=== PATIENT | male | born 1940 | race Caucasian/White ===

== ENCOUNTER → 2019-10-03 | Outpatient (CLI) | payer MEDICARE, OTHER, SELFPAY | PROVIDERS: Family Provider Family Medicine; Visit Provider Family Medicine | DX: C34.90 Malignant neoplasm of unspecified part of unspecified bronchus or lung (principal); J43.9 Emphysema, unspecified; R91.8 Other nonspecific abnormal finding of lung field; R06.00 Dyspnea, unspecified; Z98.890 Other specified postprocedural states; Z79.899 Other long term (current) drug therapy ==

== ENCOUNTER 2020-02-17 12:15 | Inpatient (IN) | payer MEDICARE, OTHER, SELFPAY ==
[2020-02-17] VITALS (7 sets, daily range): BP systolic 104–163; BP diastolic 48–102; PULSE 82–114; RESP 20–35; TEMP 36.8; O2SAT 89–97; BMI 22.0
--- NOTE | 2020-02-17 13:02 | XRR_ITS ---
PROCEDURE INFORMATION: Exam: XR Chest, 1 View Exam date and time: 02/17/2020 1:19 PM Age: 79 years old Clinical indication: Shortness of breath; Prior surgery; Surgery date: 6+ months; Surgery type: Lung-date of surgery not provided; Patient HX: History of lung cancer; Additional info: Dyspnea TECHNIQUE: Imaging protocol: XR of the chest Views: 1 view. COMPARISON: CR XR chest 2V* [id number] 02/13/2020 9:24 AM FINDINGS: Lungs: There is an underlying pattern of emphysema. Postsurgical changes are present in the right hemithorax. There is increased airspace disease in the left lower lobe with air bronchogram formation. Pleural space: No pleural effusion. No pneumothorax. Heart/Mediastinum: The cardiac silhouette is not enlarged. The mediastinal contours are normal. Calcified mediastinal lymph nodes present likely from prior granulomatous disease. Bones/joints: Postsurgical changes in the right ribs. XR/XR chest 1V portable [id number] IMPRESSION: Left lower lobe airspace disease suggesting pneumonia.
--- NOTE | 2020-02-17 13:02 | ECG_ITS ---
Measurements Intervals [place] Rate: 93 P: 103 [place]: 173 QRS: 87 QRSD: 101 T: 69 QT: 343 QTc: 429 SINUS RHYTHM WITH OCCASIONAL SUPRAVENTRICULAR PREMATURE COMPLEXES INCOMPLETE RIGHT BUNDLE BRANCH BLOCK [90+ ms QRS DURATION, TERMINAL R IN V1/V2, 40+ ms S IN I/aVL/V4/V5/V6] Compared to ECG 11/19/2018 08:15:29 Ventricular premature complex(es) no longer present ST (T wave) deviation no longer present Electronically Signed On 02-18-2020 16:21:46 CDT by Lesley Ayers M.D. [email or web address]
--- NOTE | 2020-02-17 13:04 | W.ED.SOB ---
HPI - SOB/Dyspnea General: Chief Complaint: Shortness of Breath/Dyspnea Stated Complaint: sent by dr pérez Time Seen by Provider: 02/17/20 12:50 History of Present Illness: HPI Narrative: Patient is a 79 year old male presenting with increasing shortness of breath over about the last 10 days. He has a history of lung cancer and has had resection and radiation. He was recently found to have pseudomonas in his sputum and has been on about 5 days of levaquin. Additionally he has new onset a. fib. MD elicited complaint: shortness of breath, pain with inspiration and chest pain Pertinent past history: COPD, pneumonia and other (lung cancer) Onset (ago): day(s) (10) Context: recent illness Severity: moderate Exacerbating factors: exertion Relieving factors: oxygen and rest Known history of: COPD and other (lung cancer) Associated symptoms: Deny chest pain, cough, fever(s), hemoptysis, nausea or vomiting Review of Systems General: Reports: 10 or more systems reviewed and unremarkable except in HPI and below Const: Reports: fatigue and malaise; Denies: fever(s) or chills Card: Reports: irregular heart rhythm; Denies: chest pain Resp: Reports: dyspnea; Denies: productive cough, non-productive cough, pain on inspiration or hemoptysis GI: Reports: constipation; Denies: nausea or vomiting : Reports: dysuria Neuro: Reports: difficulty walking (due to shortness of breath); Denies: headache(s), numbness in extremities or weakness in extremities PFSH ED PFSH: Social History Smoking and tobacco status: former smoker Physical Exam Const: COMMON NORMALS: patient oriented x3 and alert GENERAL APPEARANCE: frail appearing NUTRITIONAL APPEARANCE: thin HENMT: COMMON NORMALS: normocephalic and atraumatic HEAD & SCALP: normocephalic and atraumatic Neck/C-Spine: COMMON NORMALS: full ROM and supple Chest: COMMONS NORMALS: normal inspection of the chest Resp: EFFORT & INSPECTION: Yes able to speak in complete sentences AUSCULTATION: rhonchi right upper and breath sounds absent on th left Cardio: COMMON NORMALS: Peripheral pulses 2+ throughout; negative for No murmurs present (Cardio) RATE: tachycardic RHYTHM: abnormal rhythm irregularly irregular PERIPHERAL PULSES: Peripheral pulses 2+ throughout GI: COMMON NORMALS: Normal to inspection, nondistended, normoactive bowel sounds present, Soft to palpation and non-tender PALPATION: Yes Soft to palpation Neuro: COMMON NORMALS: patient oriented x3 SENSORIUM/ORIENTATION: Yes alert Psych: COMMON NORMALS: mental status grossly normal, Normal thought process present, cooperative, normal affect, speech normal and activity/motor behavior normal SPEECH: Yes normal speech THOUGHT PROCESS: Normal thought process present Skin: COMMON NORMALS: no rashes or lesions noted GENERAL SKIN EXAM: no rashes or lesions noted Course ED course: Patient comfortable at rest and on 5 liters of oxygen. Very diminished breath sounds in the left lung. CXR shows increased infiltrate in the left lower lung. WBC normal. Chemistry normal. Discussed with Dr. Doe - he will admit and also requested that we get a CTA to look for PE. EKG showed sinus rhythm - although it was done later in the ED stay and initially on the monitor that patient was convincingly in a fib. HR around 100 throughout the stay. Vital Signs: Vital signs: Vital Signs Temperature 98.3 F 02/17/20 12:22 Pulse Rate 89 02/17/20 12:22 Respiratory Rate 28 H 02/17/20 12:22 Blood Pressure 163/102 02/17/20 12:22 Pulse Oximetry 91 02/17/20 12:22 MDM - SOB/Dyspnea MDM Narrative: Medical decision making narrative: History of lung CA - recent diagnosis of psuedomonas pneumonia. increasing oxygen requirement and decreased tolerance to minimal activity. May be related to any of those diagnoses as well as PE, radiation lung injury or anemia. Work up started in the ED and will be continued in the hospital. Lab Data: Labs: Lab Results 02/17/20 02/17/20 02/17/20 Range/Units 13:05 13:05 13:05 WBC 4.8 (4.0-10.0) 10^3/ uL RBC 3.64 L (4.1-5.3) 10^6/u L Hgb 11.7 (11.7-16.6) g/dL Hct 38.4 L (42.0-52.0) % MCV 105.5 H (80-94) fL MCH 32.1 (28.0-34.0) pg MCHC 30.5 (30.0-36.0) g/dL RDW 13.3 (12.1-15.1) % Plt Count 245 (130-400) 10^3/c mm MPV 9.7 (7.4-10.4) fL Neut % (Auto) 75.0 % Lymph % (Auto) 7.0 % [place] % (Auto) 14.1 % Eos % (Auto) 2.1 % Baso % (Auto) 0.6 % Neut # (Auto) 3.6 (1.8-7.7) 10^3/u L Lymph # (Auto) 0.3 L (0.8-4.8) 10^3/u L [place] # (Auto) 0.7 (0.2-0.9) 10^3/u L Eos # (Auto) 0.1 (0.0-0.8) 10^3/u L Baso # (Auto) 0.0 (0.0-0.1) 10^3/u L Nucleated RBC % (a uto) 0 % Nucleated RBCs # 0.0 /100WBC PT (10.5-13.3) SECO NDS INR (0.8-1.2) Sodium 139 (136-145) mmol/L Potassium 4.5 (3.5-5.1) mmol/L Chloride 100 (98-107) mmol/L Carbon Dioxide 29 (22-29) mmol/L Anion Gap 14.5 (5-19) BUN 19 (8-23) mg/dL Creatinine 0.9 (0.7-1.2) mg/dL Glucose 134 H (65-115) mg/dL Calculated Osmolal ity 286 (285-295) mOsm/k g Lactate 1.8 (0.5-2.2) mmol/L Calcium 10.0 (8.5-10.5) mg/dL Phosphorus (2.5-4.5) mg/dL Magnesium (1.7-2.3) mg/dL Total Bilirubin 0.3 (0.15-1.2) mg/dL AST 28 (0-40) U/L ALT 35 (0-41) U/L Alkaline Phosphata se 76 (40-130) IU/L Troponin T Baselin e (0-15) ng/mL NT-Pro-B Natriuret Pep (0-450) pg/mL Total Protein 7.2 (6.6-8.7) g/dL Albumin 2.9 L (3.5-5.2) g/dL Globulin 4.3 (1.3-4.6) g/dL Procalcitonin (0-0.5) ng/mL TSH (0.27-4.20) uIU/ mL 02/17/20 02/17/20 02/17/20 Range/Units 13:05 13:05 13:05 WBC (4.0-10.0) 10^3/ uL RBC (4.1-5.3) 10^6/u L Hgb (11.7-16.6) g/dL Hct (42.0-52.0) % MCV (80-94) fL MCH (28.0-34.0) pg MCHC (30.0-36.0) g/dL RDW (12.1-15.1) % Plt Count (130-400) 10^3/c mm MPV (7.4-10.4) fL Neut % (Auto) % Lymph % (Auto) % [place] % (Auto) % Eos % (Auto) % Baso % (Auto) % Neut # (Auto) (1.8-7.7) 10^3/u L Lymph # (Auto) (0.8-4.8) 10^3/u L [place] # (Auto) (0.2-0.9) 10^3/u L Eos # (Auto) (0.0-0.8) 10^3/u L Baso # (Auto) (0.0-0.1) 10^3/u L Nucleated RBC % (a uto) % Nucleated RBCs # /100WBC PT 13.90 H (10.5-13.3) SECO NDS INR 1.04 (0.8-1.2) Sodium (136-145) mmol/L Potassium (3.5-5.1) mmol/L Chloride (98-107) mmol/L Carbon Dioxide (22-29) mmol/L Anion Gap (5-19) BUN (8-23) mg/dL Creatinine (0.7-1.2) mg/dL Glucose (65-115) mg/dL Calculated Osmolal ity (285-295) mOsm/k g Lactate (0.5-2.2) mmol/L Calcium (8.5-10.5) mg/dL Phosphorus 3.0 (2.5-4.5) mg/dL Magnesium 2.4 H (1.7-2.3) mg/dL Total Bilirubin (0.15-1.2) mg/dL AST (0-40) U/L ALT (0-41) U/L Alkaline Phosphata se (40-130) IU/L Troponin T Baselin e (0-15) ng/mL NT-Pro-B Natriuret Pep 497 H (0-450) pg/mL Total Protein (6.6-8.7) g/dL Albumin (3.5-5.2) g/dL Globulin (1.3-4.6) g/dL Procalcitonin 0.09 (0-0.5) ng/mL TSH 0.87 (0.27-4.20) uIU/ mL 05/15/20 Range/Units 13:05 WBC (4.0-10.0) 10^3/ uL RBC (4.1-5.3) 10^6/u L Hgb (11.7-16.6) g/dL Hct (42.0-52.0) % MCV (80-94) fL MCH (28.0-34.0) pg MCHC (30.0-36.0) g/dL RDW (12.1-15.1) % Plt Count (130-400) 10^3/c mm MPV (7.4-10.4) fL Neut % (Auto) % Lymph % (Auto) % [place] % (Auto) % Eos % (Auto) % Baso % (Auto) % Neut # (Auto) (1.8-7.7) 10^3/u L Lymph # (Auto) (0.8-4.8) 10^3/u L [place] # (Auto) (0.2-0.9) 10^3/u L Eos # (Auto) (0.0-0.8) 10^3/u L Baso # (Auto) (0.0-0.1) 10^3/u L Nucleated RBC % (a uto) % Nucleated RBCs # /100WBC PT (10.5-13.3) SECO NDS INR (0.8-1.2) Sodium (136-145) mmol/L Potassium (3.5-5.1) mmol/L Chloride (98-107) mmol/L Carbon Dioxide (22-29) mmol/L Anion Gap (5-19) BUN (8-23) mg/dL Creatinine (0.7-1.2) mg/dL Glucose (65-115) mg/dL Calculated Osmolal ity (285-295) mOsm/k g Lactate (0.5-2.2) mmol/L Calcium (8.5-10.5) mg/dL Phosphorus (2.5-4.5) mg/dL Magnesium (1.7-2.3) mg/dL Total Bilirubin (0.15-1.2) mg/dL AST (0-40) U/L ALT (0-41) U/L Alkaline Phosphata se (40-130) IU/L Troponin T Baselin e 22 H (0-15) ng/mL NT-Pro-B Natriuret Pep (0-450) pg/mL Total Protein (6.6-8.7) g/dL Albumin (3.5-5.2) g/dL Globulin (1.3-4.6) g/dL Procalcitonin (0-0.5) ng/mL TSH (0.27-4.20) uIU/ mL EKG Data^: EKG 1: EKG Interpretation Date: 02/17/20 EKG interpretation time: 14:07 Interpretation: sinus with SVPCs - rate 93, axis normal, QRS 101 Discharge Plan Discharge Patient Disposition: Admitted As Inpatient Admit Provider: Ben Doe Clinical Impression: Acute dyspnea Pneumonia Qualifiers: Pneumonia type: due to Pseudomonas Laterality: left Lung location: lower lobe of lung Qualified Code(s): J15.1 - Pneumonia due to Pseudomonas Condition: Stable Coding Level of Care Code ED Medication Nurse for g Fwd Exam Comprehensive
[2020-02-17 13:15] LABS: Basophils % 0.6 %; Eosinophils # 0.1 10^3/uL (0.0-0.8); Eosinophils % 2.1 %; Hematocrit 38.4 % (42.0-52.0); Hemoglobin 11.7 g/dL (11.7-16.6); Lymphocytes # 0.3 10^3/uL (0.8-4.8); Mean Corpuscular HGB Conc 30.5 g/dL (30.0-36.0); Mean Corpuscular Hemoglobin 32.1 pg (28.0-34.0); Mean Corpuscular Volume 105.5 fL (80-94); Mean Platelet Volume 9.7 fL (7.4-10.4); Monocytes # 0.7 10^3/uL (0.2-0.9); Monocytes % 14.1 %; Neutrophils # 3.6 10^3/uL (1.8-7.7); Nucleated Red Blood Cells % 0 %; Platelet Count 245 10^3/cmm (130-400); Red Blood Count 3.64 10^6/uL (4.1-5.3); Red Cell Distribution Width 13.3 % (12.1-15.1); White Blood Count 4.8 10^3/uL (4.0-10.0)
[2020-02-17 13:38] LABS: Alanine Aminotransferase 35 U/L (0-41); Albumin Level 2.9 g/dL (3.5-5.2); Alkaline Phosphatase 76 IU/L (40-130); Anion Gap 14.5 (5-19); Aspartate Amino Transferase 28 U/L (0-40); Blood Urea Nitrogen 19 mg/dL (8-23); Carbon Dioxide 29 mmol/L (22-29); Chloride 100 mmol/L (98-107); Globulin 4.3 g/dL (1.3-4.6); Glucose 134 mg/dL (65-115); Osmolality Calculated 286 mOsm/kg (285-295); Potassium 4.5 mmol/L (3.5-5.1); Sodium 139 mmol/L (136-145); Total Bilirubin 0.3 mg/dL (0.15-1.2); Total Protein 7.2 g/dL (6.6-8.7)
[2020-02-17 13:39] LABS: Lactate (Lactic Acid level) 1.8 mmol/L (0.5-2.2)
--- NOTE | 2020-02-17 13:46 | USCV_ITS ---
Rudi Pitts Age: 79 Gender: M : 1940 Exam Date: 02/17/2020 15:56 Ordering Phys: Ben Doe MD Technologist: Kathia Morataya Exam Location: [facility] [place] Indication: SOB BP: / HR: 110 Rhythm: Sinus Technical Quality: Very technically difficult study MEASUREMENTS (Male / Female) Normal Values 2D ECHO LV Diastolic Diameter PLAX 4.7 cm 4.2 - 5.9 / 3.9 - 5.3 cm LV Systolic Diameter PLAX 2.6 cm LV Chamber Size 4.0 cm IVS Diastolic Thickness 1.3 cm 0.6 - 1.0 / 0.6 - 0.9 cm IVS Systolic Thickness 2.2 cm LVPW Diastolic Thickness 1.1 cm 0.6 - 1.0 / 0.6 - 0.9 cm LVPW Systolic Thickness 1.7 cm RV Chamber Size 2.8 cm LVOT Diameter 2.1 cm LV Ejection Fraction 2D Teich 74.9 % LA Diameter 3.1 cm LA Width 2.7 cm LA Height 3.5 cm RA Width 4.0 cm RA Height 3.7 cm M-MODE LV Diastolic Diameter MM 5.1 cm 4.2 - 5.9 / 3.9 - 5.3 cm LV Systolic Diameter MM 3.3 cm LV Ejection Fraction MM Teich 66.3 % IVS Diastolic Thickness MM 1.4 cm 0.6 - 1.0 / 0.6 - 0.9 cm IVS Systolic Thickness MM 1.3 cm LVPW Diastolic Thickness MM 1.4 cm 0.6 - 1.0 / 0.6 - 0.9 cm LVPW Systolic Thickness MM 1.6 cm RV Diastolic Diameter MM 1.1 cm Aortic Annulus Diameter 2.9 cm LA Ao Ratio MM 1.1 MV E Point Septal Separation 0.3 cm DOPPLER AV Peak Velocity 356.0 cm/s LVOT Peak Velocity 114.0 cm/s AV Area Cont Eq vti 0.9 cm squared AV Area Cont Eq pk 1.1 cm squared MV Area PHT 5.8 cm squared Mitral E to A Ratio 1.0 MV E' Velocity 8.0 cm/s Mitral E to MV E' Ratio 4.3 Mitral E to LV E' Lateral Ratio 6.1 Mitral E to LV E' Septal Ratio 3.4 TR Peak Velocity 350.9 cm/s TR Peak Gradient 49.3 mmHg TR Mean Velocity 269.1 cm/s TR Mean Gradient 30.5 mmHg TR Velocity Time Integral 71.8 cm TV Peak E Velocity 64.0 cm/s Right Atrial Pressure 15.0 mmHg Pulmonary Artery Systolic Pressu 64.3 mmHg PV Peak Velocity 73.0 cm/s RV Acceleration Time 0.1 s RV Ejection Time 0.3 s RV AcT/ET 0.4 FINDINGS Left Ventricle Normal left ventricular size and systolic function. Left ventricular ejection fraction is estimated at 55 %. Although no diagnostic regional wall abnormality could be identified, this possibility cannot be completely excluded based on the study. Right Ventricle Normal right ventricular size and systolic function. Right ventricular systolic pressure 64.3 mmHg. Right Atrium Normal right atrial size. Left Atrium Left atrium not well visualized. Mitral Valve Structurally normal mitral valve. Aortic Valve Thickened and calcified aortic valve. Flow acceleration noted through left ventricular outflow tract. At least moderate aortic valve stenosis, peak velocity 3.6 m/s, peak gradient 51 mmHg mean gradient 28.6 mmHg, FOREST 0.92 cm squared by continuity equation. This could be underestimated given off axis views. Tricuspid Valve Tricuspid valve not well visualized. Pulmonic Valve Pulmonic valve not well visualized. Pericardium No pericardial effusion. Prominent epicardial fat. Aorta Aorta not well visualized. CONCLUSIONS 1. This is a technically very difficult study. No apical windows and poor parasternal windows. 2. Normal left ventricular size and systolic function. Left ventricular ejection fraction is estimated at 55 %. Although no diagnostic regional wall abnormality could be identified, this possibility cannot be completely excluded based on the study. 3. Normal right ventricular size and systolic function. 4. At least moderate aortic valve stenosis, peak velocity 3.6 m/s, peak gradient 51 mmHg mean gradient 28.6 mmHg, FOREST 0.92 cm squared by continuity equation. This could be underestimated given off axis views. 5. RAHUL is recommended for better assessment of aortic valve. 6. No prior similar studies to compare. Lesley Ayers MD (Electronically Signed) Final Date: 18 Feb 2020 15:02 S
--- NOTE | 2020-02-17 13:46 | CT_ITS ---
WS: [id number] CT CHEST ANGIOGRAPHY WITH REFORMATS HISTORY: cancer, new onset afib, SOB TECHNIQUE: Contiguous axial images are obtained through the chest during arterial injection of intrav enous contrast. Images are reconstructed to evaluate the pulmonary arteries. MIP imaging also reviewe d. All CT scans at [facility] use at least one of these dose optimization techniques: aut omated exposure control; mA and/or kV adjustment per patient size (includes targeted exams where dose is matched to clinical indication); or iterative reconstruction. CONTRAST: Omnipaque 350; 95 mL IV. DLP: 1172.76 mGy.cm COMPARISON: 05/30/2019 Excellent opacification of the pulmonary arteries. Normal size pulmonary artery. No filling defects o r pulmonary embolism. Extensive atherosclerosis of aorta. No aneurysm. Mildly enlarged cardiac chambe rs. No filling defect in the LEFT atrial appendage. No pericardial or pleural effusions. Severe emphysema. History of prior RIGHT upper and middle lobectomies. Previously described pleural t hickening and nodularity along the lateral LEFT upper lung measures 2.3 x 1.0 cm and has slightly inc reased in size. Previously described RIGHT lung nodule seen on 05/30/2019 is no longer apparent. Tree- in-bud airspace disease at the LEFT lung base with mild progression. Atelectasis at the LEFT lung bas e. Mediastinal and hilar lymphadenopathy is indeterminate. Lymph node measures 11 mm in the LEFT paratra cheal region. LEFT hilar lymph node measures 12 mm. No adrenal mass. Visualized liver contains a few scattered very small hypodense nodules which are pre sent on the prior study. No increase in size or new hepatic nodules to suggest metastatic disease. No osteoblastic or osteolytic bone disease. CT/CT angio chest PE protcl [id number] IMPRESSION: 1. No pulmonary embolism. 2. Prior RIGHT upper and middle lobectomies. 3. Severe chronic emphysema. 4. Slight increased size of the pleural-based nodule in the LEFT upper thorax since 05/30/2019. 5. Previously described RIGHT lung nodule is no longer present. 6. Indeterminate but slightly enlarged mediastinal and hilar lymph nodes since 05/30/2019. 7. LEFT lower lobe bronchiectasis with impacted bronchial retained secretions, similar to 05/30/2019.
[2020-02-17] MEDS: sodium chloride 0.9% 500 ML 999 ML IV (13:50)
[2020-02-17 14:13] LABS: INR 1.04 (0.8-1.2)
[2020-02-17 14:26] LABS: Troponin(5th) Baseline 22 ng/mL (0-15)
[2020-02-17 14:34] LABS: NT Pro B Type Natriuretic Pept 497 pg/mL (0-450); Procalcitonin 0.09 ng/mL (0-0.5)
[2020-02-17 14:35] LABS: Thyroid Stimulating Hormone 0.87 uIU/mL (0.27-4.20)
[2020-02-17 14:45] LABS: Magnesium 2.4 mg/dL (1.7-2.3)
[2020-02-17] MEDS: iohexol 350 mg/mL 100 mL Btl IV (14:51)
[2020-02-17] MEDS: enoxaparin 40 mg/0.4 mL Syringe SUBCUT (15:08)
[2020-02-17 15:36] LABS: Troponin 5 2HR 19.77 ng/mL (0-15)
[2020-02-17 15:38] LABS: Troponin 5 2HR Delta -2.23 ABS# (0-10)
--- NOTE | 2020-02-17 15:54 | ECG_ITS ---
Measurements Intervals [place] Rate: 111 P: -81 RI: 143 QRS: 86 QRSD: 92 T: 67 QT: 324 QTc: 441 ECTOPIC ATRIAL TACHYCARDIA WITH FREQUENT SUPRAVENTRICULAR PREMATURE COMPLEXES INCOMPLETE RIGHT BUNDLE BRANCH BLOCK MINIMAL ST DEPRESSION Compared to ECG 11/19/2018 08:15:29 Sinus rhythm no longer present Ventricular premature complex(es) no longer present ST (T wave) deviation still present Electronically Signed On 02-20-2020 20:31:58 CDT by Lesley Ayers M.D. [email or web address]
--- NOTE | 2020-02-17 16:03 | P.HP_ITS ---
Providers/Chief Complaint Admitting Physician: Ben Doe MD Primary Care Provider: Beny Nelson MD Chief Complaint: sob History of Present Illness Rudi Pitts is a 79 year old male with a past medical history of lung cancer status post lobectomy and radiation therapy, COPD 2 L oxygen dependent iron deficiency anemia, B12 deficiency, hyperlipidemia, BPH who presents to [facility] from Dr. Nelson office through the emergency room due to complaints of shortness of breath and malaise and fatigue. Patient states that for the last 2 weeks he has been complaining of increased shortness of breath, increased shortness of breath with minimal exertion, shortness of breath at times at rest, his oxygen requirements have increased from 2 L to 4 L, denies chest pain, denies palpitations, denies lightheadedness, denies dizziness, denies orthopnea, denies paroxysmal nocturnal dyspnea, denies cough, complains of low-grade fevers, no chills, no sick contacts, no recent travel, no known exposure to Covid 19, no history of CAD, no history of stenting of the heart, no history of heart failure, no history of stress test. Patient states that he saw Dr. Nelson, there was some concerns for possible numb respiratory tract infection, he was on antibiotics, Levaquin, but did not get any better. Dr. Nelson said that he saw him office today, he was in A. fib with RVR, heart rates in the 120s, was short of breath, was using up to 4 L oxygen Review of Systems Const: Denies: fever(s), chills, fatigue or malaise Eyes: Denies: change in vision or blurry vision ENMT: Denies: throat pain or nasal congestion Card: Reports: irregular heart rhythm; Denies: chest pain or palpitations Resp: Denies: dyspnea, productive cough, non-productive cough or wheezing GI: Denies: abdominal pain, nausea, vomiting, hematemesis, diarrhea, constipation, hematochezia or melena : Denies: flank pain, difficulty urinating, dysuria or urinary frequency Musc: Denies: neck pain or back pain Skin/Breast: Denies: rash Neuro: Denies: headache(s), dizziness or vertigo Psych: Denies: anxiety or depression Endo: Denies: polyuria or polydipsia Medications/Allergies Home Medications Medication Instructions Recorded Confirmed Last Taken Type albuterol sulfate 2 puff INHALATION QID PRN 02/17/20 02/17/20 02/17/20 History budesonide-formoterol [Symbicort] 2 puff INHALATION BID 02/17/20 02/17/20 02/17/20 History cyanocobalamin (vitamin B-12) 1,000 mcg SUBCUT Q30D 02/17/20 02/17/20 02/16/20 History furosemide 20 mg PO DAILY 02/17/20 02/17/20 02/17/20 History ipratropium-albuterol [Combivent 1 puff INHALATION QID 02/17/20 02/17/20 02/17/20 History Respimat] levofloxacin 750 mg PO DAILY 02/17/20 02/17/20 02/17/20 History lovastatin 20 mg PO DAILY 02/17/20 02/17/20 02/16/20 History sildenafil (pulm.hypertension) 20 mg PO PRN PRN 02/17/20 02/17/20 Unknown History tamsulosin 0.4 mg PO DAILY 02/17/20 02/17/20 02/16/20 History Allergies Allergy/AdvReac Type Severity Reaction Status Date / Time No Known Allergies Allergy Verified 02/17/20 12:31 PFSH Acute PFSH: Medical History (Updated 02/17/20 @ 16:19 by Ben Doe MD) Atrial fibrillation with RVR COPD (chronic obstructive pulmonary disease) History of lung cancer Hyperlipidemia Surgical History (Updated 02/17/20 @ 16:15 by Ben Doe MD) History of lobectomy of lung Family History (Updated 02/17/20 @ 16:16 by Ben Doe MD) Other CAD (coronary artery disease) Social History (Updated 02/17/20 @ 16:16 by Ben Doe MD) Smoking and tobacco status: former smoker Alcohol intake: never Substance/Drug Use: never Vitals/I&O/Wt Last Vital Signs Temp 98.3 F 02/17/20 12:22 Pulse 109 H 02/17/20 15:41 Resp 35 H 02/17/20 15:41 BP 151/67 02/17/20 15:41 Pulse Ox 89 L 02/17/20 15:41 0502/17/20 02/17/20 06:59 14:59 22:59 Intake Total 500 / 500 Balance 500 / 500 Weight last 48 hrs Weight 71.668 kg Physical Exam Const: COMMON NORMALS: no acute distress and patient oriented x3 GENERAL APPEARANCE: cooperative and comfortable HENMT: COMMON NORMALS: normocephalic HEAD & SCALP: normocephalic Eye: COMMON NORMALS: Equal, round and reactive pupils present, EOMs intact bilaterally and no papilledema GENERAL EYE: appearance normal, both eyes and all related structures PUPIL: Yes Equal, round and reactive pupils present DIRECT OPHTHALMOSCOPY: Yes no papilledema Neck/C-Spine: COMMON NORMALS: full ROM, no lymphadenopathy, no JVD and Thyroid normal THYROID: Thyroid normal Lymph: LYMPHATIC: no lymphadenopathy noted Resp: COMMON NORMALS: normal respiratory effort, No retractions, No use of accessory muscles and clear to auscultation bilaterally AUSCULTATION: crackles Cardio: COMMON NORMALS: no JVD, regular rate, regular rhythm, S1 normal heart sound present, S2 normal heart sound present, No gallops present (Cardio), No clicks present (Cardio) and No murmurs present (Cardio) RATE: regular rate RHYTHM: regular rhythm HEART SOUNDS: S1 normal heart sound present and S2 normal heart sound present GI: COMMON NORMALS: Normal to inspection, nondistended, normoactive bowel sounds present, Soft to palpation, non-tender and No hepatosplenomegaly present PALPATION: Yes Soft to palpation and Yes No hepatosplenomegaly present Extremity: COMMON NORMALS: normal to inspection, full ROM and no pedal edema Neuro: COMMON NORMALS: patient oriented x3, CN's II-XII intact bilaterally, moves all extremities and no focal motor deficits Psych: COMMON NORMALS: mental status grossly normal, Normal thought process present and cooperative THOUGHT PROCESS: Normal thought process present Data : 02/17/20 13:05 02/17/20 13:05 A&P Assessment and plan (1) Atrial fibrillation with RVR: -New onset with A. fib with RVR Plan: -Continue telemetry monitoring -Serial troponins -TSH, mag -Start metoprolol 25 twice daily -Eliquis 5 mg twice daily -Cardiac echo Status: Acute (2) COPD (chronic obstructive pulmonary disease): -Uses 4 L oxygen at home -Not in exacerbation, no wheezing on exam Status: Acute (3) Respiratory tract infection: -Doxycycline -Has failed outpatient treatment with Levaquin -CTA does show left lower lobe bronchiectasis with impacted bronchial retained secretions -He does have's slightly large mediastinal and hilar lymphadenopathy, Status: Acute (4) Hyperlipidemia: Status: Acute (5) BPH (benign prostatic hyperplasia): Status: Acute (6) History of lung cancer: -Status post right upper and middle lobe lobectomy -Status post radiation therapy -CTA negative for pulmonary embolism Status: Acute (7) Hilar lymphadenopathy: -CT angios shows intermediate but slightly larger mediastinal and hilar lymphadenopathy since 05/30/2019 -Given his history of lung cancer, patient will require it outpatient follow-up with oncology Status: Acute Attestations Medical Necessity Statement*: Patient requires hospitalization, inpatient, greater than 2 midnight for A. fib with RVR, Coding Level of Care Code Acute Network Planner for Chg Fwd Diagnoses Atrial fibrillation with RVR I48.91 COPD (chronic obstructive pulmonary disease) J44.9 Respiratory tract infection J98.8 Hyperlipidemia E78.5 BPH (benign prostatic hyperplasia) N40.0 History of lung cancer Z85.118 Hilar lymphadenopathy R59.0
[2020-02-17 17:15] LABS: Estmated Average Glucose 131; Hemoglobin A1C 6.2 % (4.0-6.0)
[2020-02-17] MEDS: apixaban 5 mg Tablet PO (18:19)
[2020-02-17] MEDS: metoprolol tartrate 25 mg Tablet PO (18:19)
[2020-02-17] MEDS: FUROsemide 10 mg/mL SDV 4mL 40 MG IVP (18:20)
[2020-02-17 19:37] LABS: Troponin 5 6HR 27.38 ng/mL (0-15); Troponin 5 6HR Delta 5.38 ng/L (0-12)
--- NOTE | 2020-02-17 19:54 | ECG_ITS ---
Measurements Intervals [place] Rate: 111 P: 87 ND: 220 QRS: 87 QRSD: 104 T: 69 QT: 336 QTc: 458 SINUS TACHYCARDIA WITH FIRST DEGREE AV BLOCK WITH OCCASIONAL VENTRICULAR PREMATURE COMPLEXES WITH FREQUENT SUPRAVENTRICULAR COMPLEXES INCOMPLETE RIGHT BUNDLE BRANCH BLOCK MODERATE ST DEPRESSION Compared to ECG 11/19/2018 08:15:29 First degree AV block now present Sinus rhythm no longer present ST (T wave) deviation still present Electronically Signed On 02-20-2020 20:54:34 CDT by Lesley Ayers M.D. [id number]
[2020-02-17 20:27] LABS: Add Urine Microscopic? NO
[2020-02-17 20:50] LABS: Urine Appearance Clear (CLEAR); Urine Color Yellow (Yellow); pH Urine 6.5 (5-7)
[2020-02-17 20:51] LABS: Bilirubin Urine Neg (NEGATIVE); Blood Urine Neg (Negative); Glucose Urine UA Norm (Normal); Ketones Urine Negative (Negative); Leukocyte Esterase Urine Negative (Negative); Nitrate Urine Negative (Negative); Protein Urine Neg (Negative); Urobilinogen Urine Norm (Negative)
[2020-02-18] VITALS (10 sets, daily range): BP systolic 91–131; BP diastolic 48–77; PULSE 78–105; RESP 15–30; TEMP 36.4–36.9; O2SAT 92–98
[2020-02-18 05:15] LABS: Basophils % 0.5 %; Eosinophils # 0.2 10^3/uL (0.0-0.8); Eosinophils % 4.2 %; Hematocrit 34.7 % (42.0-52.0); Hemoglobin 10.9 g/dL (11.7-16.6); Lymphocytes # 0.5 10^3/uL (0.8-4.8); Lymphocytes % 10.7 %; Mean Corpuscular HGB Conc 31.4 g/dL (30.0-36.0); Mean Corpuscular Hemoglobin 32.6 pg (28.0-34.0); Mean Corpuscular Volume 103.9 fL (80-94); Mean Platelet Volume 9.9 fL (7.4-10.4); Monocytes # 0.8 10^3/uL (0.2-0.9); Monocytes % 17.9 %; Neutrophils # 2.8 10^3/uL (1.8-7.7); Neutrophils % 65.3 %; Nucleated Red Blood Cells % 0 %; Platelet Count 278 10^3/cmm (130-400); Red Blood Count 3.34 10^6/uL (4.1-5.3); Red Cell Distribution Width 13.5 % (12.1-15.1); White Blood Count 4.3 10^3/uL (4.0-10.0)
[2020-02-18 05:16] LABS: Alanine Aminotransferase 32 U/L (0-41); Albumin Level 2.7 g/dL (3.5-5.2); Alkaline Phosphatase 66 IU/L (40-130); Anion Gap 13.9 (5-19); Aspartate Amino Transferase 27 U/L (0-40); Blood Urea Nitrogen 21 mg/dL (8-23); Calcium 9.6 mg/dL (8.5-10.5); Carbon Dioxide 30 mmol/L (22-29); Chloride 102 mmol/L (98-107); Globulin 3.8 g/dL (1.3-4.6); Glucose 99 mg/dL (65-115); Magnesium 2.3 mg/dL (1.7-2.3); Osmolality Calculated 291 mOsm/kg (285-295); Phosphorus 2.9 mg/dL (2.5-4.5); Potassium 3.9 mmol/L (3.5-5.1); Sodium 142 mmol/L (136-145); Total Bilirubin 0.3 mg/dL (0.15-1.2); Total Protein 6.5 g/dL (6.6-8.7)
[2020-02-18 05:19] LABS: Chol HDL Ratio 4.03 mg/dL (1.0-5.00); Cholesterol 157 mg/dL (0-200); HDL Cholesterol 39 mg/dL (60-100); LDL Cholesterol Calculated 104 mg/dL (50-129); LDL HDL Ratio 2.67 RATIO (0.00-3.22); Triglycerides 68 mg/dL (0-150)
--- NOTE | 2020-02-18 08:07 | P.PN_ITS ---
Subjective Subjective: Interval history: No acute events overnight. This morning on evaluation patient is lying comfortably in bed on 4 L nasal cannula saturating more than 92%. Patient states he is feeling a lot better than when he came in. He denies of having any nausea, vomiting, headache, dizziness, palpitations. Telemetry overnight had shown frequent APCs and VPCs but sinus rhythm. Vitals/I&O/Wt Last Vital Signs Temp 98.4 F 02/18/20 07:43 Pulse 105 H 02/18/20 07:43 Resp 18 02/18/20 07:43 BP 127/74 02/18/20 07:43 Pulse Ox 94 02/18/20 07:43 02/17/20 02/18/20 02/18/20 22:59 06:59 14:59 Intake Total 740 / 740 520 / 1260 Output Total 950 / 950 425 / 1375 Balance -210 / -210 95 / -115 Weight last 48 hrs Weight 71.668 kg Physical Exam Narrative: EXAM NARRATIVE: General: No acute distress, AO x3 HEENT: PERRLA, pupils bilaterally equal and reactive Chest: Normal vesicular breath sounds, decreased air entry in the right upper and middle lobe, occasional bilateral fine crackles. CVS: S1-S2 irregularly regular, soft pansystolic murmur at apex, no tachycardia, no gallops, no rubs Abdomen: Soft, nontender, no organomegaly, bowel sounds present Neuro: No focal deficits, no facial deformity, AO x3, power 5/5 in all limbs Data : 02/18/20 04:23 02/18/20 04:23 A&P Assessment and plan (1) Arrhythmia, atrial: Status: Acute (2) COPD (chronic obstructive pulmonary disease): -Uses 4 L oxygen at home -Not in exacerbation, no wheezing on exam Status: Acute (3) Respiratory tract infection: Status: Acute (4) Hyperlipidemia: Status: Acute (5) BPH (benign prostatic hyperplasia): Status: Acute (6) History of lung cancer: -Status post right upper and middle lobe lobectomy -Status post radiation therapy -CTA negative for pulmonary embolism Status: Acute (7) Hilar lymphadenopathy: -CT angios shows intermediate but slightly larger mediastinal and hilar lymphadenopathy since 05/30/2019 -Given his history of lung cancer, patient will require it outpatient follow-up with oncology Status: Acute Additional A&P Information Arrhythmia: Most likely sinus tachycardia with frequent VPCs and APCs. On examination today morning patient was having frequent bigeminy. Patient does not seem to be having any atrial fibrillation since admission. Patient does not carry any history of atrial fibrillation in the past. Magnesium, calcium levels within normal limit. We will plan to keep magnesium over 2 and calcium over 9. Given his history of lung cancer, COPD we will switch metoprolol which started yesterday to Cardizem 30 mg p.o. every 6 hourly. As patient does not have any atrial fibrillation at present we will stop the Eliquis. Patient would most likely need a Holter monitor as an outpatient to look for any underlying atrial fibrillation. Will hold off on any anticoagulation until then. Discussed this in detail with patient. He understands and is agreeable to not being on anticoagulation for now. Is confirmed that he has atrial fibrillation. Given his history of lobectomy it is possible patient is having frequent APCs. Shortness of breath: Most likely a combination of mild COPD exacerbation and CHF. proBNP mildly elevated. Patient received IV Lasix 40 mg twice daily yesterday. Appears euvolemic to mildly dehydrated today. We will switch over to p.o. Lasix 40 mg daily today. Echocardiogram done shows a normal EF 55% with a possible moderate aortic sclerosis with peak gradient of at least 51 mmHg. Pro-Fritz on admission negative, patient has remained afebrile with no infiltrate on pulmonary imaging. We will continue to hold off on antibiotics for now. He has already completed a dose of Levaquin as an outpatient. Continue oxygen supplementation keeping saturation over 92%. Continue DuoNeb's every 6 hourly and Advair twice daily. Full code. Cardiac diet. Lovenox for DVT prophylaxis. Patient complaining that he is little unsteady on his feet at home for last 1 to 2 weeks. We will get physical therapy evaluation and plan for discharge to home with home health versus SNF accordingly. Attestations Medical Necessity Statement*: Arrhythmia, shortness of breath Coding Level of Care Code Acute Counseling Department Chair for [facility] Diagnoses Arrhythmia, atrial I49.8 COPD (chronic obstructive pulmonary disease) J44.9 Respiratory tract infection J98.8 Hyperlipidemia E78.5 BPH (benign prostatic hyperplasia) N40.0 History of lung cancer Z85.118 Hilar lymphadenopathy R59.0
[2020-02-18 08:33] LABS: Procalcitonin 0.09 ng/mL (0-0.5)
[2020-02-18 08:44] LABS: Iron 52 ug/dL (59-158); Percent Saturation 43.6 % (20-50); Total Iron Binding Capacity 119 mcg/dl; Unsaturated Iron Binding 67 ug/dL (112-347)
[2020-02-18] MEDS: metoprolol tartrate 25 mg Tablet PO (08:50)
[2020-02-18] MEDS: tamsulosin 0.4 mg Capsule PO (08:50)
[2020-02-18] MEDS: ferrous sulfate EC 325 mg Tablet PO (08:50)
[2020-02-18] MEDS: atorvastatin 40 mg Tablet 20 MG PO (08:50)
[2020-02-18] MEDS: apixaban 5 mg Tablet PO (08:50)
[2020-02-18] MEDS: FUROsemide 20 mg Tablet 40 MG PO (10:54)
--- NOTE | 2020-02-18 13:04 | PC.RESP ---
Pulmonary Rehab information to patient.
[2020-02-18] MEDS: dilTIAZem 30 mg Tablet PO ×3 (13:49→23:18)
[2020-02-18] MEDS: enoxaparin 40 mg/0.4 mL Syringe SUBCUT (17:45)
[2020-02-19] VITALS (8 sets, daily range): BP systolic 93–118; BP diastolic 47–73; PULSE 78–107; RESP 18–31; TEMP 36.6–37.1; O2SAT 92–98
[2020-02-19 05:00] LABS: Basophils % 0.8 %; Eosinophils # 0.2 10^3/uL (0.0-0.8); Eosinophils % 3.8 %; Hematocrit 32.5 % (42.0-52.0); Hemoglobin 9.9 g/dL (11.7-16.6); Lymphocytes # 0.6 10^3/uL (0.8-4.8); Lymphocytes % 13.8 %; Mean Corpuscular HGB Conc 30.5 g/dL (30.0-36.0); Mean Corpuscular Hemoglobin 31.2 pg (28.0-34.0); Mean Corpuscular Volume 102.5 fL (80-94); Mean Platelet Volume 9.8 fL (7.4-10.4); Monocytes # 0.7 10^3/uL (0.2-0.9); Monocytes % 17.3 %; Neutrophils # 2.5 10^3/uL (1.8-7.7); Neutrophils % 62.8 %; Nucleated Red Blood Cells % 0 %; Platelet Count 257 10^3/cmm (130-400); Red Blood Count 3.17 10^6/uL (4.1-5.3); Red Cell Distribution Width 13.3 % (12.1-15.1)
[2020-02-19 05:26] LABS: Alanine Aminotransferase 24 U/L (0-41); Albumin Level 2.7 g/dL (3.5-5.2); Alkaline Phosphatase 62 IU/L (40-130); Anion Gap 9.7 (5-19); Aspartate Amino Transferase 20 U/L (0-40); Blood Urea Nitrogen 20 mg/dL (8-23); Calcium 8.7 mg/dL (8.5-10.5); Carbon Dioxide 32 mmol/L (22-29); Chloride 98 mmol/L (98-107); Globulin 3.2 g/dL (1.3-4.6); Glucose 107 mg/dL (65-115); Osmolality Calculated 279 mOsm/kg (285-295); Potassium 3.7 mmol/L (3.5-5.1); Sodium 136 mmol/L (136-145); Total Bilirubin 0.4 mg/dL (0.15-1.2); Total Protein 5.9 g/dL (6.6-8.7)
[2020-02-19] MEDS: dilTIAZem 30 mg Tablet PO ×3 (05:35→17:44)
[2020-02-19] MEDS: tamsulosin 0.4 mg Capsule PO (08:48)
[2020-02-19] MEDS: FUROsemide 20 mg Tablet 40 MG PO (08:48)
[2020-02-19] MEDS: ferrous sulfate EC 325 mg Tablet PO (08:48)
[2020-02-19] MEDS: atorvastatin 40 mg Tablet 20 MG PO (08:48)
--- NOTE | 2020-02-19 15:56 | PM.PN ---
Subjective Subjective: Interval history: No acute events overnight. On examination patient in comfortably in bed. Denies of having any nausea, vomiting, headache, dizziness. States his breathing is at his baseline but is concerned regarding his safe discharge as he is not able to get up on his own. Patient is getting out of breath on ambulation. Vitals/I&O/Wt Last Vital Signs Temp 98.3 F 02/19/20 12:00 Pulse 107 H 02/19/20 12:00 Resp 24 H 02/19/20 12:00 BP 111/53 02/19/20 12:00 Pulse Ox 96 02/19/20 12:00 02/19/20 02/19/20 02/19/20 06:59 14:59 22:59 Intake Total 350 / 1190 600 / 600 Output Total 425 / 975 350 / 350 Balance -75 / 215 250 / 250 Physical Exam Narrative: EXAM NARRATIVE: General: No acute distress, AO x3 HEENT: PERRLA, pupils bilaterally equal and reactive Chest: Normal vesicular breath sounds, decreased air entry in the right upper and middle lobe, occasional bilateral fine crackles. CVS: S1-S2 irregularly regular, soft pansystolic murmur at apex, no tachycardia, no gallops, no rubs Abdomen: Soft, nontender, no organomegaly, bowel sounds present Neuro: No focal deficits, no facial deformity, AO x3, power 5/5 in all limbs Data : 02/19/20 04:15 02/19/20 04:15 A&P Assessment and plan (1) Arrhythmia, atrial: Status: Acute (2) COPD (chronic obstructive pulmonary disease): -Uses 4 L oxygen at home -Not in exacerbation, no wheezing on exam Status: Acute (3) Respiratory tract infection: Status: Acute (4) Hyperlipidemia: Status: Acute (5) BPH (benign prostatic hyperplasia): Status: Acute (6) History of lung cancer: -Status post right upper and middle lobe lobectomy -Status post radiation therapy -CTA negative for pulmonary embolism Status: Acute (7) Hilar lymphadenopathy: -CT angios shows intermediate but slightly larger mediastinal and hilar lymphadenopathy since 05/30/2019 -Given his history of lung cancer, patient will require it outpatient follow-up with oncology Status: Acute Additional A&P Information Arrhythmia: Most likely sinus tachycardia with frequent VPCs and APCs. On examination today morning patient was having frequent bigeminy. Patient does not seem to be having any atrial fibrillation since admission. Patient does not carry any history of atrial fibrillation in the past. Magnesium, calcium levels within normal limit. We will plan to keep magnesium over 2 and calcium over 9. Heart rate better controlled since Cardizem has been started. For now continue Cardizem 30 every 6 hourly. As patient does not have any atrial fibrillation at present we will stop the Eliquis. Patient would most likely need a Holter monitor as an outpatient to look for any underlying atrial fibrillation. Will hold off on any anticoagulation until then. Discussed this in detail with patient. He understands and is agreeable to not being on anticoagulation for now. Is confirmed that he has atrial fibrillation. Given his history of lobectomy it is possible patient is having frequent APCs. Shortness of breath: Most likely a combination of mild COPD exacerbation and CHF. Continue with duo nebs and Advair. Will give patient 5-day of burst prednisone. proBNP mildly elevated. Patient received IV Lasix 40 mg twice daily yesterday. Continue with Lasix 40 mg daily. Echocardiogram done shows a normal EF 55% with a possible moderate aortic sclerosis with peak gradient of at least 51 mmHg. Pro-Fritz on admission negative, patient has remained afebrile with no infiltrate on pulmonary imaging. We will continue to hold off on antibiotics for now. He has already completed a dose of Levaquin as an outpatient. Continue oxygen supplementation keeping saturation over 92%. Full code. Cardiac diet. Lovenox for DVT prophylaxis. PT/OT evaluation appreciated. Discussed with patient regarding possible need of SNF placement. He states he would like to go to relocate if possible. We will discuss with care coordination for safe discharge planning. Patient would most likely need SNF placement for severe deconditioning because of COPD exacerbation. Attestations Medical Necessity Statement*: COPD exacerbation, arrhythmia Time Spent in Patient Care: Greater than 35 minutes Coding Level of Care Code Acute Plaster Lather for [facility] Diagnoses Arrhythmia, atrial I49.8 COPD (chronic obstructive pulmonary disease) J44.9 Respiratory tract infection J98.8 Hyperlipidemia E78.5 BPH (benign prostatic hyperplasia) N40.0 History of lung cancer Z85.118 Hilar lymphadenopathy R59.0
--- NOTE | 2020-02-19 16:01 | ECG_ITS ---
Measurements Intervals [place] Rate: 93 P: 103 ME: 184 QRS: 84 QRSD: 105 T: 61 QT: 346 QTc: 430 SINUS RHYTHM WITH OCCASIONAL SUPRAVENTRICULAR PREMATURE COMPLEXES INCOMPLETE RIGHT BUNDLE BRANCH BLOCK [90+ ms QRS DURATION, TERMINAL R IN V1/V2, 40+ ms S IN I/aVL/V4/V5/V6] Compared to ECG 02/17/2020 14:04:36 No significant changes Electronically Signed On 02-20-2020 20:25:11 CDT by Lesley Ayers M.D. [id number]
[2020-02-19] MEDS: enoxaparin 40 mg/0.4 mL Syringe SUBCUT (17:44)
[2020-02-20] VITALS (7 sets, daily range): BP systolic 101–107; BP diastolic 47–68; PULSE 85–109; RESP 17–23; TEMP 36.5–36.7; O2SAT 83–98
[2020-02-20] MEDS: dilTIAZem 30 mg Tablet PO ×2 (04:29→05:38)
[2020-02-20 06:01] LABS: Basophils % 0.4 %; Eosinophils # 0.1 10^3/uL (0.0-0.8); Eosinophils % 2.2 %; Hematocrit 33.3 % (42.0-52.0); Hemoglobin 10.4 g/dL (11.7-16.6); Lymphocytes # 0.4 10^3/uL (0.8-4.8); Lymphocytes % 9.4 %; Mean Corpuscular HGB Conc 31.2 g/dL (30.0-36.0); Mean Corpuscular Hemoglobin 31.8 pg (28.0-34.0); Mean Corpuscular Volume 101.8 fL (80-94); Mean Platelet Volume 9.8 fL (7.4-10.4); Monocytes # 0.8 10^3/uL (0.2-0.9); Monocytes % 17.4 %; Neutrophils # 3.1 10^3/uL (1.8-7.7); Neutrophils % 69.3 %; Nucleated Red Blood Cells % 0 %; Platelet Count 264 10^3/cmm (130-400); Red Blood Count 3.27 10^6/uL (4.1-5.3); Red Cell Distribution Width 13.3 % (12.1-15.1); White Blood Count 4.5 10^3/uL (4.0-10.0)
[2020-02-20 06:23] LABS: Alanine Aminotransferase 23 U/L (0-41); Albumin Level 2.8 g/dL (3.5-5.2); Alkaline Phosphatase 66 IU/L (40-130); Anion Gap 12.8 (5-19); Aspartate Amino Transferase 22 U/L (0-40); Blood Urea Nitrogen 19 mg/dL (8-23); Calcium 9.4 mg/dL (8.5-10.5); Carbon Dioxide 32 mmol/L (22-29); Chloride 99 mmol/L (98-107); Globulin 3.8 g/dL (1.3-4.6); Glucose 109 mg/dL (65-115); Osmolality Calculated 287 mOsm/kg (285-295); Potassium 3.8 mmol/L (3.5-5.1); Sodium 140 mmol/L (136-145); Total Bilirubin 0.4 mg/dL (0.15-1.2); Total Protein 6.6 g/dL (6.6-8.7)
--- NOTE | 2020-02-20 08:36 | DCPLANNER ---
Pg 2 of IM reviewed with pt. No questions, he is hopeful that he gets to go to [facility] today. Copy provided.
[2020-02-20] MEDS: predniSONE 20 mg Tablet 40 MG PO (08:55)
[2020-02-20] MEDS: ferrous sulfate EC 325 mg Tablet PO (08:56)
[2020-02-20] MEDS: FUROsemide 20 mg Tablet 40 MG PO (08:56)
[2020-02-20] MEDS: atorvastatin 40 mg Tablet 20 MG PO (08:56)
[2020-02-20] MEDS: tamsulosin 0.4 mg Capsule PO (08:57)
--- NOTE | 2020-02-20 12:49 | P.PN_ITS ---
Subjective Subjective: Interval history: No acute events overnight. On examination patient in comfortably in bed. Denies of having any nausea, vomiting, headache, dizziness. States his breathing is at his baseline but is concerned regarding his safe discharge as he is not able to get up on his own. Patient is getting out of breath on ambulation. Vitals/I&O/Wt Last Vital Signs Temp 98.0 F 02/20/20 12:00 Pulse 109 H 02/20/20 12:00 Resp 22 H 02/20/20 12:00 BP 103/68 02/20/20 12:00 Pulse Ox 92 02/20/20 12:00 02/19/20 02/20/20 02/20/20 22:59 06:59 14:59 Intake Total 120 / 720 50 / 770 480 / 480 Output Total 375 / 725 100 / 825 50 / 50 Balance -255 / -5 -50 / -55 430 / 430 Physical Exam Narrative: EXAM NARRATIVE: General: No acute distress, AO x3 HEENT: PERRLA, pupils bilaterally equal and reactive Chest: Normal vesicular breath sounds, decreased air entry in the right upper and middle lobe, occasional bilateral fine crackles. CVS: S1-S2 irregularly regular, soft pansystolic murmur at apex, no tachycardia, no gallops, no rubs Abdomen: Soft, nontender, no organomegaly, bowel sounds present Neuro: No focal deficits, no facial deformity, AO x3, power 5/5 in all limbs Data : 02/20/20 05:03 02/20/20 05:03 A&P Assessment and plan (1) Arrhythmia, atrial: Status: Acute (2) COPD (chronic obstructive pulmonary disease): -Uses 4 L oxygen at home -Not in exacerbation, no wheezing on exam Status: Acute (3) Respiratory tract infection: Status: Acute (4) Hyperlipidemia: Status: Acute (5) BPH (benign prostatic hyperplasia): Status: Acute (6) History of lung cancer: -Status post right upper and middle lobe lobectomy -Status post radiation therapy -CTA negative for pulmonary embolism Status: Acute (7) Hilar lymphadenopathy: -CT angios shows intermediate but slightly larger mediastinal and hilar lymphadenopathy since 05/30/2019 -Given his history of lung cancer, patient will require it outpatient follow-up with oncology Status: Acute (8) Moderate aortic stenosis: Status: Acute Additional A&P Information 73 gentleman past medical history of lung cancer status post lobectomy and addition therapy, COPD chronically on 2 L nasal cannula supplementation but now on 4 L for last 1 to 2 months, chronic iron deficiency anemia, hyperlipidemia, BPH was sent in from his primary care's office because of concerns of atrial fibrillation. Arrhythmia: Patient mostly on telemetry had sinus tachycardia with occasional APCs and VPCs but yesterday had bursts of A. fib but all rate controlled. Continue with Cardizem 30 mg every 6 hourly. Discussed with patient regarding the fact that he is having frequent atrial fibrillation so Eliquis has been started at 5 mg twice daily. Mandeep vas score?three 4 aortic stenosis, age over 75. Shortness of breath: Most likely a combination of mild COPD exacerbation and CHF. Continue with duo nebs and Advair. Will give patient 5-day of burst prednisone. proBNP mildly elevated. Continue with Lasix 40 mg daily. Echocardiogram done shows a normal EF 55% with a possible moderate aortic sclerosis with peak gradient of at least 51 mmHg. Discussed with patient that given poor respiratory status patient is not a good candidate for aortic valve replacement but might consider TAVR. Have advised him to follow-up with provider network analyst as an outpatient for same. Pro-Fritz on admission negative, patient has remained afebrile with no infiltrate on pulmonary imaging. We will continue to hold off on antibiotics for now. He has already completed a dose of Levaquin as an outpatient. Continue oxygen supplementation keeping saturation over 92%. Full code. Cardiac diet. Lovenox for DVT prophylaxis. PT/OT evaluation appreciated. Discussed with patient regarding possible need of SNF placement. Patient would most likely need SNF placement for severe deconditioning because of COPD exacerbation. Attestations Medical Necessity Statement*: A. fib with RVR, awaiting preauthorization for safe discharge. Time Spent in Patient Care: 16 - 35 minutes Coding Level of Care Code Acute Oceanographer Geological for g Fwd Diagnoses Arrhythmia, atrial I49.8 COPD (chronic obstructive pulmonary disease) J44.9 Respiratory tract infection J98.8 Hyperlipidemia E78.5 BPH (benign prostatic hyperplasia) N40.0 History of lung cancer Z85.118 Hilar lymphadenopathy R59.0 Moderate aortic stenosis I35.0
--- NOTE | 2020-02-20 13:31 | PM.DCS ---
Discharge Providers Date of Admission: 02/17/20 14:04 Date of Discharge: February 20, 2020 Attending Provider at Admission: Ben Doe MD Attending Provider at Discharge: Sean Ren MD Primary Care Provider: Beny Nelson MD Diagnoses at Discharge Discharge Diagnosis (1) Arrhythmia, atrial: Status: Acute (2) COPD (chronic obstructive pulmonary disease): Status: Acute (3) Respiratory tract infection: Status: Acute (4) Hyperlipidemia: Status: Acute (5) BPH (benign prostatic hyperplasia): Status: Acute (6) History of lung cancer: Status: Acute (7) Hilar lymphadenopathy: Status: Acute (8) Moderate aortic stenosis: Status: Acute Reason for Visit Reason for Visit: Reason For Visit: sob Hospital Course Discharge Summary: 73 gentleman past medical history of lung cancer status post lobectomy and addition therapy, COPD chronically on 2 L nasal cannula supplementation but now on 4 L for last 1 to 2 months, chronic iron deficiency anemia, hyperlipidemia, BPH was sent in from his primary care's office because of concerns of atrial fibrillation. He was started on oral Cardizem which he tolerated well. He was also started on Eliquis for anticoagulation. Patient tolerated the treatment well. During hospitalization echocardiogram was done which showed a normal EF but was concerning for moderate aortic stenosis with peak gradient of at least 51 mmHg. Patient was counseled regarding possible aortic valve replacement but he would not be a good candidate given his poor respiratory status. But can consider TAVR. Patient is advised to follow-up with a utility helicopter repairer in next 1 month. Patient had severe deconditioning because of COPD exacerbation so physical therapy evaluation was done and it was deemed that patient would do best with physical therapy rehabilitation so SNF placement was sought. Continue evaluation was done prior to discharge. For further details please see my note from today. Physical Exam Narrative: EXAM NARRATIVE: General: No acute distress, AO x3 HEENT: PERRLA, pupils bilaterally equal and reactive Chest: Normal vesicular breath sounds, decreased air entry in the right upper and middle lobe, occasional bilateral fine crackles. CVS: S1-S2 irregularly regular, soft pansystolic murmur at apex, no tachycardia, no gallops, no rubs Abdomen: Soft, nontender, no organomegaly, bowel sounds present Neuro: No focal deficits, no facial deformity, AO x3, power 5/5 in all limbs Discharge Data Data Completed and Pending: Completed Studies During Hospitalization Category Date Time Status CT angio chest PE protcl [id number] Urge nt Cat Scan 02/17/20 13:46 Completed XR chest 1V lety ble [id number] Stat Exams 02/17/20 13:02 Completed CV echo complete* [id number] Routine Ultrasound 02/17/20 13:46 Completed Pending at discharge Category Date Time Status Complete Blood Co unt w/Auto AM LABS Lab 02/21/20 04:00 Ordered Labs from last 24 hours 02/20/20 02/20/20 05:03 05:03 WBC 4.5 RBC 3.27 L Hgb 10.4 L Hct 33.3 L MCV 101.8 H MCH 31.8 MCHC 31.2 RDW 13.3 Plt Count 264 MPV 9.8 Neut % (Auto) 69.3 Lymph % (Auto) 9.4 [place] % (Auto) 17.4 Eos % (Auto) 2.2 Baso % (Auto) 0.4 Neut # (Auto) 3.1 Lymph # (Auto) 0.4 L [place] # (Auto) 0.8 Eos # (Auto) 0.1 Baso # (Auto) 0.0 Nucleated RBC % (a uto) 0 Nucleated RBCs # 0.0 Sodium 140 Potassium 3.8 Chloride 99 Carbon Dioxide 32 H Anion Gap 12.8 BUN 19 Creatinine 0.7 Glucose 109 Calculated Osmolal ity 287 Calcium 9.4 Total Bilirubin 0.4 AST 22 ALT 23 Alkaline Phosphata se 66 Total Protein 6.6 Albumin 2.8 L Globulin 3.8 Vitals: Last Vital Signs Temp 98.0 F 02/20/20 12:00 Pulse 109 H 02/20/20 12:00 Resp 22 H 02/20/20 12:00 BP 103/68 02/20/20 12:00 Pulse Ox 92 02/20/20 12:00 Discharge Plan Discharge Patient Disposition: Xfer SNF Condition: Stable Prescriptions: New furosemide 20 mg Tablet 40 mg PO DAILY Qty: 30 RF: 0 Eliquis 5 mg Tablet 5 mg PO BID Qty: 60 RF: 0 diltiazem HCl [Cardizem CD] 120 mg capsule,extended release 24hr 120 mg PO DAILY Qty: 30 RF: 0 Continued tamsulosin 0.4 mg capsule 0.4 mg PO DAILY RF: 0 cyanocobalamin (vitamin B-12) 1,000 mcg/mL solution 1,000 mcg SUBCUT Q30D RF: 0 lovastatin 20 mg tablet 20 mg PO DAILY RF: 0 albuterol sulfate 90 mcg/actuation HFA aerosol inhaler 2 puff INHALATION QID PRN (Reason: Shortness Of Breath) RF: 0 sildenafil (pulm.hypertension) 20 mg tablet 20 mg PO PRN PRN (Reason: Sexual Activity) RF: 0 Symbicort 80-4.5 mcg/actuation Hfa Aerosol Inhaler 2 puff INHALATION BID RF: 0 Combivent Respimat 20-100 mcg/actuation mist 1 puff INHALATION QID RF: 0 Discontinued furosemide 20 mg tablet 20 mg PO DAILY RF: 0 levofloxacin 750 mg tablet 750 mg PO DAILY RF: 0 Discharge Orders: Discharge Order (Routine); Ordered 02/20/20 Ordered By: Sean Ren Referrals: [facility] [Outside] Beny Nelson MD [Primary Care Provider] - 2 weeks Lesley Ayers MD [Physician] - 1 month (Moderate aortic stenosis, possible TAVR.) Discharge Diet: Cardiac Discharge Activity: Resume usual activity Activity Restrictions/Additional Instructions: Cardizem has been added to your home medications. Eliquis has been added to home medication as anticoagulation for atrial fibrillation. Discharge Attestations Time Spent in Discharge Care*: greater than 30 min Specific Discharge Activities: Specific discharge activities: educating patient, discussing with pcp/other providers, discussing with case planner/social workers/dc planners, documenting/other paperwork and evaluating patient/reviewing data Status at Discharge: Cognitive status at discharge: cognitively intact, Behavioral status at discharge: cooperative, Functional status at discharge: uses cane/walker Overall status at discharge: patient is progressing back to baseline Quality Metrics Clinical Quality Measures During this hospital stay, did patient experience: None Coding Level of Care Code Acute Naval Aircrewman Helicopter for [employer] Fwd Diagnoses Arrhythmia, atrial I49.8 COPD (chronic obstructive pulmonary disease) J44.9 Respiratory tract infection J98.8 Hyperlipidemia E78.5 BPH (benign prostatic hyperplasia) N40.0 History of lung cancer Z85.118 Hilar lymphadenopathy R59.0 Moderate aortic stenosis I35.0
== END 2020-02-20 15:15 | disposition skilled nursing facility (03) | DRG 192 ==
LOC: ER 12:59 → CSU 14:29
PROVIDERS: Admitting Provider Family Medicine; Emergency Provider Emergency Medicine; PCP Family Medicine; Visit Provider Student in an Organized Health Care Education/Training Program
DX: J44.1 Chronic obstructive pulmonary disease with (acute) exacerbation (principal); I35.0 Nonrheumatic aortic (valve) stenosis; R59.1 Generalized enlarged lymph nodes; Z85.118 Personal history of other malignant neoplasm of bronchus and lung; N40.0 Benign prostatic hyperplasia without lower urinary tract symptoms; E78.5 Hyperlipidemia, unspecified; Z90.2 Acquired absence of lung [part of]; Z99.81 Dependence on supplemental oxygen; Z92.3 Personal history of irradiation; D50.9 Iron deficiency anemia, unspecified; I48.91 Unspecified atrial fibrillation; Z87.891 Personal history of nicotine dependence; J98.8 Other specified respiratory disorders; Z82.49 Family history of ischemic heart disease and other diseases of the circulatory system; I50.9 Heart failure, unspecified; I49.8 Other specified cardiac arrhythmias
CPT/HCPCS: 12345; 36415; 71045; 71275; 80053; 80061; 81003; 83036; 83540; 83550; 83605; 83735; 83880; 84100; 84145; 84443; 84484; 85025; 85610; 93005; 93306; 94640; 94664; 96372; 96375; 97110; 97116; 97161; 97530; 99283; J1650; J1940; J3535; J7040; J7512; Q9967

== ENCOUNTER 2020-04-11 11:55 | Day surgery (SDC) | payer MEDICARE, OTHER, SELFPAY ==
--- NOTE | 2020-04-11 12:26 | USCV_ITS ---
Rudi Pitts Age: 79 Gender: M : 1940 Exam Date: 04/11/2020 12:18 Ordering Phys: Lesley Ayers MD ([email or web address]) Technologist: Kathia Morataya Exam Location: [facility] [place] Indication: Aortic stenosis BP: 121 / 64 HR: 72 Rhythm: Sinus Technical Quality: Adequate MEASUREMENTS (Male / Female) Normal Values 2D ECHO LVOT Diameter 2.4 cm DOPPLER AV Peak Velocity 294.0 cm/s LVOT Peak Velocity 60.0 cm/s AV Area Cont Eq vti 1.6 cm squared AV Area Cont Eq pk 0.9 cm squared Medications IV sedation by anesthesia. Refer to seperate report for details. Complications Intubation easy. Attempts x 1. Small amount of blood on probe post procedure. Patient tolerated the procedure well. No rosalee- procedural complications. Proc. Components Multiple images were obtained at mid esophageal and transgastric levels FINDINGS Left Ventricle Normal left ventricular size and systolic function with no regional wall motion abnormalities. Moderate concentric left ventricular hypertrophy. Left ventricular ejection fraction is estimated at 65 %. Right Ventricle Normal right ventricular size and systolic function. Right Atrium Normal right atrial size. Left Atrium Normal left atrial size. LA Appendage Normal left atrial appendage. No thrombus visualized in the left atrial appendage. IA Septum Normal interatrial septum. Mitral Valve Structurally normal mitral valve. Trace-mild mitral valve regurgitation. Aortic Valve Markedly thickened and calcified trileaflet aortic valve. Possibly low gradient severe aortic stenosis with peak velocity of 3.8 m/s, peak gradient 59 mm Hg, mean gradient 29 mm Hg and aortic valve area of 0.7 cm2 by continuity equation (LVOT= 22mm). Stroke volume index of 34 ml/m2. Aortic valve area by 2 D planimetry of 0.9 cm2. No aortic valve regurgitation. Tricuspid Valve Structurally normal tricuspid valve. Trace to mild tricuspid valve regurgitation. Pulmonic Valve Structurally normal pulmonic valve. No pulmonary valve stenosis. Trace pulmonary valve regurgitation. Pericardium No pericardial effusion. Aorta Normal size aortic root and proximal ascending aorta. No aortic dilation, aneurysm or dissection. CONCLUSIONS 1. Normal left ventricular size and systolic function with no regional wall motion abnormalities. Moderate concentric left ventricular hypertrophy. Left ventricular ejection fraction is estimated at 65 %. 2. Possibly low gradient severe aortic valve stenosis with peak velocity of 3.8 m/s, peak gradient 59 mm Hg, mean gradient 29 mm Hg and aortic valve area of 0.7 cm2 by continuity equation. Aortic valve area by 2 D planimetry of 0.9 cm2. 3. Trace to mild mitral and tricuspid valve regurgitation. 4. No prior similar studies to compare. Lesley Ayers MD (Electronically Signed) Final Date: 16 April 2020 09:11 S
[2020-04-11 12:32] VITALS: BP 121/64; PULSE 93; RESP 22; TEMP 36.8; O2SAT 95; BMI 22.3
--- NOTE | 2020-04-11 12:49 | ANES.PREANE2 ---
Pre-Anesthetic Assessment Pre-Anesthetic Assessment: Height/Weight: Height 1.8 m Weight 72.575 kg Temp Pulse Resp BP Pulse Ox 98.3 F 93 22 H 121/64 95 04/11/20 12:32 04/11/20 12:32 04/11/20 12:32 04/11/20 12:32 04/11/20 12:32 Preop Diagnosis: Aortic stenosis Proposed Procedure: Operation Date: 04/11/20 13:00 Proposed Procedures p RAHUL (Transesophageal Echocardiogram)(Not Applicable) - Lesley Ayers MD Familial anesthetic complications: denies Was Beta Debbie taken within 24 hours: N/A Last Intake: 00:00 Social: Social History: No alcohol and No tobacco Pack years: Quit 2011 Exam: Pre-Anes Outpt Exam: alert, oriented x 3 and clear to auscultation bilaterally Airway: Dentition: Other Pulmonary: Pulmonary: COPD (3 L ), PADGETT and SOB CV/HEM: CV/HEM: Afib, Anemia and HTN : : None reported Comments: prostate issues Hepatic: Hepatic: None reported GI: GI: None reported Metabolic: Metabolic: None reported Musc/skel: Musc/skel: None reported Neuropsych: Neuropsych: None reported Anesthetic Plan: ASA status: 3 Anesthesia: Anesthesia Evaluation and MAC PFSH Anesthesia PFSH: Medical History Aortic stenosis Atrial fibrillation COPD (chronic obstructive pulmonary disease) History of lung cancer Hyperlipidemia Surgical History History of lobectomy of lung Family History Other CAD (coronary artery disease) Social History Smoking and tobacco status: former smoker Alcohol intake: never Data Anesthesia Cardiac Studies: Holter Monitor 03/06/20
[2020-04-11 13:53] VITALS: BP 105/47; PULSE 81; RESP 22; O2SAT 96
[2020-04-11 14:06] VITALS: BP 121/43; PULSE 90; RESP 22; TEMP 36.8; O2SAT 95
--- NOTE | 2020-04-11 14:10 | W.PM.OPSUD ---
Surgery/Procedure H&P Update DATE OF PROCEDURE: April 11, 2020 H&P UPDATE INFORMATION: I have reviewed H&P completed withig last 30 days and I have examined the patient prior to the procedure. DATE H&P PERFORMED: 04/11/20 PREOP DIAGNOSIS: Aortic stenosis PLANNED PROCEDURE: Operation Date: 04/11/20 13:00 Proposed Procedures p ARHUL (Transesophageal Echocardiogram)(Not Applicable) - Lesley Ayers MD Patient reassessed prior to sedation with no changes. Patient was AAOx3 with coarse bilateral breath sounds.
[2020-04-11 14:27] VITALS: BP 132/69; PULSE 85; RESP 22; O2SAT 94
== END 2020-04-11 14:49 | disposition home or self-care (01) ==
PROVIDERS: PCP Family Medicine; Visit Provider Internal Medicine Cardiovascular Disease
PROC: (CPT 93312; principal; 2020-04-11 13:00)
DX: I35.0 Nonrheumatic aortic (valve) stenosis (principal); I48.19 Other persistent atrial fibrillation; E78.5 Hyperlipidemia, unspecified; J43.8 Other emphysema; Z99.81 Dependence on supplemental oxygen; N40.0 Benign prostatic hyperplasia without lower urinary tract symptoms; Z85.850 Personal history of malignant neoplasm of thyroid; Z82.49 Family history of ischemic heart disease and other diseases of the circulatory system; Z87.891 Personal history of nicotine dependence; I10 Essential (primary) hypertension
CPT/HCPCS: 12345; 93312; 93320; 93325; J2704; J7030

== ENCOUNTER → 2020-05-18 14:05 | Outpatient (BNVA) | payer MEDICARE, OTHER, SELFPAY | PROVIDERS: PCP Family Medicine; Visit Provider Internal Medicine | DX: Z11.59 Encounter for screening for other viral diseases (principal) | CPT/HCPCS: 87635 ==

== ENCOUNTER 2020-05-21 06:49 | Day surgery (SDC) | payer MEDICARE, OTHER, SELFPAY ==
[2020-05-18 12:31] LABS: Basophils % 0.7 %; Eosinophils # 0.1 10^3/uL (0.0-0.8); Eosinophils % 1.3 %; Hematocrit 36.9 % (42.0-52.0); Hemoglobin 11.3 g/dL (11.7-16.6); Lymphocytes # 0.8 10^3/uL (0.8-4.8); Lymphocytes % 14.9 %; Mean Corpuscular HGB Conc 30.6 g/dL (30.0-36.0); Mean Corpuscular Hemoglobin 32.2 pg (28.0-34.0); Mean Corpuscular Volume 105.1 fL (80-94); Mean Platelet Volume 10.4 fL (7.4-10.4); Monocytes # 0.7 10^3/uL (0.2-0.9); Monocytes % 11.6 %; Neutrophils # 3.97 10^3/uL (1.8-7.7); Neutrophils % 71.1 %; Nucleated Red Blood Cells % 0 %; Platelet Count 229 10^3/cmm (130-400); Red Blood Count 3.51 10^6/uL (4.1-5.3); Red Cell Distribution Width 14.1 % (12.1-15.1); White Blood Count 5.6 10^3/uL (4.0-10.0)
[2020-05-18 12:53] LABS: INR 1.18 (0.8-1.2)
[2020-05-18 13:11] LABS: Anion Gap 13.4 (5-19); Blood Urea Nitrogen 15 mg/dL (8-23); Calcium 9.5 mg/dL (8.5-10.5); Carbon Dioxide 32 mmol/L (22-29); Chloride 101 mmol/L (98-107); Glucose 107 mg/dL (65-115); NT Pro B Type Natriuretic Pept 523 pg/mL (0-450); Osmolality Calculated 291 mOsm/kg (285-295); Potassium 4.4 mmol/L (3.5-5.1); Sodium 142 mmol/L (136-145)
[2020-05-21] VITALS (22 sets, daily range): BP systolic 98–133; BP diastolic 53–93; PULSE 66–100; RESP 14–29; TEMP 36.5; O2SAT 92–100; BMI 20.9
[2020-05-21] MEDS: diphenhydrAMINE 50 mg Capsule PO (08:13)
[2020-05-21] MEDS: sodium chloride 0.9% 1,000 ML 50 ML IV (08:14)
[2020-05-21 08:23] LABS: Basophils % 0.7 %; Eosinophils % 0.7 %; Hematocrit 35.2 % (42.0-52.0); Hemoglobin 10.7 g/dL (11.7-16.6); Lymphocytes # 0.7 10^3/uL (0.8-4.8); Lymphocytes % 11.8 %; Mean Corpuscular HGB Conc 30.4 g/dL (30.0-36.0); Mean Corpuscular Hemoglobin 32.2 pg (28.0-34.0); Mean Platelet Volume 10.8 fL (7.4-10.4); Monocytes # 0.6 10^3/uL (0.2-0.9); Monocytes % 9.9 %; Neutrophils # 4.28 10^3/uL (1.8-7.7); Neutrophils % 76.7 %; Nucleated Red Blood Cells % 0 %; Platelet Count 201 10^3/cmm (130-400); Red Blood Count 3.32 10^6/uL (4.1-5.3); Red Cell Distribution Width 14.2 % (12.1-15.1); White Blood Count 5.6 10^3/uL (4.0-10.0)
--- NOTE | 2020-05-21 08:30 | XACV_ITS ---
Exam Room: [facility] Ht: 180 cm Wt: 69 kg BSA: 1.85 m2 Gender: Male : 1940 Any Known Allergies: No known allergies Exam Priority: Routine Procedure(s): Procedure Description: Diagnostic procedure Procedure Description: Right Heart Catheterization Procedure Description: Coronary Angiography Diagnostic Cath Status: Elective Diagnostic Findings No significant disease noted in the Left Main, LAD, Circumflex, or RCA coronary arteries. Coronary angiography shows right dominance. Conclusions No significant disease noted in the Left Main, LAD, Circumflex, or RCA coronary arteries. Right heart catheterizationNormal right-sided filling pressure RA mean 8 mmHgNormal right ventricle pressure 34/4 mmHgNormal mean PA pressure 23 mmHg Elevated left-sided filling pressure pulmonary capillary wedge pressure 24 mmHgCardiac index 2.4Cardiac output 4.5 . Recommendations 1-Return to inpatient for close monitoring and routine cath care 2-Follow up with Dr. Ayers as scheduled . Pressures Phase:Rest AO : 95 mmHg / 53 mmHg ( 70 mmHg ) @ 4:47:00 AM RV : 34 mmHg / 4 mmHg / @ 4:38:00 AM PA : 37 mmHg / 13 mmHg ( 23 mmHg ) @ 4:36:00 AM RA : a wave = v wave = mean = 8 mmHg @ 4:39:00 AM O2 Content Phase:Rest PA : O2 Content O2: 53.7 % @ 4:47:00 AM Saturations Phase:Rest AO : 87 % @ 4:39:00 AM RA : 55 % @ 4:36:00 AM RV : 53 % @ 4:41:00 AM PA : 54 % @ 4:47:00 AM Cardiac Output Phase:Rest Juan : 5 l/min @ 4:47:00 AM Juan Cardiac Index: 2 L/min/m2 @ 4:47:00 AM Clinical Evaluation EBL: 5mL-10mL Procedural Details Procedure Consent Obtained. Pre-Procedure Time Out. Identified patient by full name and date of as verbalized by the patient/guarantor. Does the consent match the physician's order: Yes. Accurate & Complete Informed Consent: Yes. Inpatient/Outpatient History & Physical on Chart: Yes. If H&P is completed, is and addenduem needed: No; If yes, is the addendum complete: N/A. Visualize and Verify Site with Patient/Guarantor: N/A. Relevant Radiology Images available: Yes. Pre-op teaching completed and patient verbalized understanding. The risks, benefits, and alternatives of sedation and/or procedure were discussed by physician. The patient agrees to continue. Procedure started. Correct patient, site and procedure confirmed by cath team. Current diagnosis: Chest Pain. PERRLA. Strong, equal hand presetter operator bilaterally. Lungs clear x 5 lobes. IV Site on Arrival: 20 gauge in the left anticubital. IV Fluids: 0.9% NaCl at KVO. 0 mL infused prior to laborer operator. Pre Procedural Pulses: bilateral dorsalis pedis was 2+. Pre Procedural Pulses: bilateral posterior tibial was 2+. Pre Procedural Pulses: bilateral radial was 3+. Oxygen started at 2liters/min via nasal canula. bilateral groins was prepped with chloroprep then draped in the usual sterile fashion. right radial was prepped with chloroprep then draped in the usual sterile fashion. Physician notified. IV Site on Arrival: 20 gauge in the right anticubital. Baseline sample Acquired. HR: 88 BPM. Equipment: 6F - Radial. Physician arrived. Patient placed on room air. Physician scrubbed in. Immediate Pre-Procedure Time Out. Correct Patient: Yes; Correct Procedure: Yes; Correct Site: Yes; Correct Patient Position: Yes; Correct Supplies: Yes; Dried Flammable Prep: Yes; Blood Products Available: No;. Lidocaine 1% infiltrated to the Right Brachial site. Reading-Malena MON catheter inserted. Pressure measurements obtained. Oximetry samples were obtained. Normal venous range: 60-85%. Normal arterial range: 95-100%. Lidocaine 1% infiltrated to the right radial. Arterial access obtained. Oxygen placed on 3lpm. A 6 sami TIG catheter in over wire. Multiple views taken of right coronary artery. Catheter redirected to the LCA. Catheter out. A 5 sami JL4 catheter in over wire. Multiple views taken of left coronary artery. A 5 sami Angled Pig catheter in over wire. A 5 sami MPA2 catheter in over wire. TR band placed. Hemostasis obtained. A TR Band was successful obtaining hemostatsis at the Right Radial artery insertion site. Post Procedure: Pulses reassessed and unchanged. PERRLA. Strong, equal hand presetter operator bilaterally. No VTE prophylaxis required. Medication's Wasted: Lidocaine 1% = 18 mL. Medication's Wasted: Nitro = 49.8 mg. Medication's Wasted: Heparin = 1000 units. Total IV fluids: 100 mL. Sheath pulled and manual pressure was used and successful in obtaining hemostatsis at the Right Brachial Vein insertion site. Contrast type used: Omnipaque 300 mgI/mL, 500 mL bottle. Post-op diagnosis: Normal Coronaries. Complications: None. Estimated blood loss: 5mL-10mL. [facility] Clinical Fraility Score: 4: Vulnerable. Director Of Database Marketing Indications: Worsening Angina. Chest Pain Symptom Assessment: Typical Angina Symptoms. Cardiovascular Instability: Yes. Procedure completed. Patient transferred by wheelchair to 1st floor. Vital chart was stopped. Site: Right Brachial Vein Sheath Size: 6 Fr Hemostasis Method: Manual Compression Hemostasis Success: Successful Site: Right Radial artery Sheath Size: 6 Fr Hemostasis Method: TR Band Hemostasis Success: Successful Procedure Medications Start: 9:04 AM Stop: 9:04 AM Medication: Versed Amount: 1 mg Route: I.V. Start: 9:04 AM Stop: 9:04 AM Medication: Fentanyl Amount: 50 mcg Route: I.V. Start: 9:41 AM Stop: 9:41 AM Medication: Versed Amount: 1 mg Route: I.V. Start: 9:47 AM Stop: 9:47 AM Medication: Heparin Amount: 5000 units Route: I.V. Start: 9:48 AM Stop: 9:48 AM Medication: Fentanyl Amount: 50 mcg Route: I.V. Start: 9:46 AM Stop: 9:46 AM Medication: Nitrogylcerin Amount: 200 mcg Route: I.A. I, the attending physician, have reviewed and verified all procedure medications. Yes, all medications given per verbal order History/Risk Factors Hypertension: No Dyslipidemia: Yes Peripheral Arterial Disease (PAD): No Myocardial Infarction (VT): No Obesity: No Renal Disease: No Tobacco Use: Former Prior Interventions PCI: No CABG: No Valve Surgery: No Report Signatures Finalized by:Eamon Morris MD on 06/02/2020 2:38:11 PM
--- NOTE | 2020-05-21 08:43 | W.PM.OPSUD ---
Surgery/Procedure H&P Update DATE OF PROCEDURE: May 21, 2020 DATE H&P PERFORMED: 03/27/20 H&P UPDATE INFORMATION: I have examined patient prior to procedure and No changes to prior documentation PREOP DIAGNOSIS: Aortic stenosis PLANNED PROCEDURE: Operation Date: 05/21/20 08:30 Proposed Procedures p Cardiac Catheterization left and right heart cath(Bilateral) - Eamon Morris MD PATIENT REASSESSED PRIOR TO SEDATION, WITH NO CHANGE NOTED: Yes PHYSICAL EXAM: alert, oriented x 3 and clear to auscultation bilaterally AIRWAY EVAL/ANESTHESIA PLAN: ASA II, Risks, benefits & alternatives of sedation and/or procedure discussed and Patient agrees to continue as planned
[2020-05-21 09:01] LABS: Anion Gap 12.9 (5-19); Blood Urea Nitrogen 15 mg/dL (8-23); Calcium 8.9 mg/dL (8.5-10.5); Carbon Dioxide 30 mmol/L (22-29); Chloride 103 mmol/L (98-107); Glucose 104 mg/dL (65-115); Osmolality Calculated 291 mOsm/kg (285-295); Potassium 3.9 mmol/L (3.5-5.1); Sodium 142 mmol/L (136-145)
--- NOTE | 2020-05-21 11:49 | PC.RESP ---
Pulmonary Rehab information sent to patient.
--- NOTE | 2020-05-21 16:02 | PC.NURSE ---
DISCHARGE PATIENT'S RADIAL SITE ON RIGHT WRIST BEGAN TO OOZE WHEN ONLY 5ML OF AIR WAS LEFT IN THE TR BAND. 5 MORE ML OF AIR INSTILLED IN THE TR BAND. WAITED 30 MINUTES AND RESUMED TAKING OFF TR BAND. NO FURTHER ISSUES WITH BLEEDING OR HEMATOMAS. PATIENT DISCHARGED WITH NO ISSUES.
== END 2020-05-21 15:46 | disposition home or self-care (01) ==
LOC: CCL 06:51 → CSU 07:22
PROVIDERS: PCP Family Medicine; Visit Provider Internal Medicine Cardiovascular Disease
DX: I35.0 Nonrheumatic aortic (valve) stenosis (principal); E78.5 Hyperlipidemia, unspecified; Z87.891 Personal history of nicotine dependence
CPT/HCPCS: 12345; 80048; 83880; 85025; 85610; 93456; C1751; C1769; C1887; C1894; J1644; J2250; J3010; J3490; J7030; Q0163; Q9967

== ENCOUNTER → 2020-05-29 08:54 | Outpatient (BNVA) | payer MEDICARE, OTHER, SELFPAY | PROVIDERS: PCP Family Medicine; Visit Provider Internal Medicine Cardiovascular Disease | DX: I35.0 Nonrheumatic aortic (valve) stenosis (principal) | CPT/HCPCS: 80048 ==